=== PATIENT | male | born 1935 | race Caucasian/White ===

== ENCOUNTER 2016-10-21 17:45 | Emergency (ER) | payer MEDICARE, OTHER ==
[~2016-10-21 17:45] MED LIST: ALBUTEROL0.63 MG/3 IH; ASPIR 8181 MG PO; ASPIRIN EC325 MG PO; COUMADIN2.5 MG PO; COUMADIN5 MG PO; COZAAR100 MG PO; COZAAR50 MG PO; DIGOXIN250 MCG PO; FEOSOL325 MG PO; FOLIC ACID1 MG PO; IPRAT-ALBUT 0.5-3 ML IH; IRON325 MG PO; ISOSORBIDE MONO60 MG PO; K-DUR20 MEQ PO; KLOR-CON M2020 MEQ PO; LANOXIN250 MCG PO; LASIX40 MG PO; LIPITOR40 MG PO; LOPRESSOR100 MG PO; NITROSTAT0.4 MG SL; NORVASC5 MG PO; POLYETHYLENE GL17 GM PO; PRAVACHOL40 MG PO; PREDNISONE10 MG PO; PROAIR HFA8.5 GM INH; QVAR8.7 G1 IH; QVAR8.7 G1 INH; QVAR8.7 GM INH; SEROQUEL50 MG PO; ZANTAC150 MG PO; ZANTAC300 MG PO; ZITHROMAX250 MG PO; ZITHROMAX500 MG PO
== END 2016-10-21 21:48 | disposition home or self-care (01) ==
LOC: ER 17:45
DX: I48.2 Chronic atrial fibrillation (principal); I10 Essential (primary) hypertension; K21.9 Gastro-esophageal reflux disease without esophagitis; J44.9 Chronic obstructive pulmonary disease, unspecified; F41.9 Anxiety disorder, unspecified; Z90.49 Acquired absence of other specified parts of digestive tract; Z79.899 Other long term (current) drug therapy; Z79.01 Long term (current) use of anticoagulants; Z88.2 Allergy status to sulfonamides
CPT/HCPCS: 36415

== ENCOUNTER 2017-01-10 11:03 | Emergency (ER) | payer MEDICARE, OTHER | END 2017-01-10 15:30 | disposition home or self-care (01) | LOC: ER 11:03 | DX: I11.0 Hypertensive heart disease with heart failure (principal); I50.1 Left ventricular failure, unspecified; E87.6 Hypokalemia; I48.91 Unspecified atrial fibrillation; J44.9 Chronic obstructive pulmonary disease, unspecified; K21.9 Gastro-esophageal reflux disease without esophagitis; F41.9 Anxiety disorder, unspecified; Z90.49 Acquired absence of other specified parts of digestive tract; Z88.2 Allergy status to sulfonamides; E66.9 Obesity, unspecified; Z68.36 Body mass index [BMI] 36.0-36.9, adult; Z79.899 Other long term (current) drug therapy | CPT/HCPCS: 36415; 96374; J1940 ==